=== PATIENT | male | born 1960 | race Caucasian/White ===

== ENCOUNTER 2019-12-11 00:55 | Emergency (ER) | payer OTHER ==
[~2019-12-11] VITALS: Ht 195.6 cm; Wt 125.1 kg
[2019-12-11 01:01] VITALS: BP 105/71
== END 2019-12-11 03:17 | disposition home or self-care (01) ==
LOC: ED 03:10
DX: S62.634A Displaced fracture of distal phalanx of right ring finger, initial encounter for closed fracture (principal); G89.11 Acute pain due to trauma; M79.641 Pain in right hand; X58.XXXA Exposure to other specified factors, initial encounter; Y93.89 Activity, other specified; Y92.89 Other specified places as the place of occurrence of the external cause; Y99.0 Civilian activity done for income or pay
CPT/HCPCS: 29130; 99283